=== PATIENT | male | born 1990 | race Caucasian/White ===

== ENCOUNTER 2018-04-13 16:58 | Emergency (ER) | payer BC, MEDICAID ==
[2018-04-13] MEDS ORDERED: Ketorolac 60 MG/2 ML SDV IM ONE (17:50)
--- NOTE | 2018-04-13 18:32 | EDM.PDOC ---
ED HPI GENERAL MEDICAL PROBLEM - General Chief Complaint: Back Pain or Injury Stated Complaint: LOW BACK PAIN, FELL OFF LATTER, 3RD STEP UP,WK AGO Time Seen by Provider: 04/13/18 17:34 Source of Information: Reports: Patient History Limitations: Reports: No Limitations - History of Present Illness INITIAL COMMENTS - FREE TEXT/NARRATIVE: Fell down the 3rd step of ladder about one week ago, landed and then fell back into steel pole. Pain with movement to lumbar and coccyx. Used ibuprofen periodically with no relief. No loss of bowel or bladder control; no numbness to groin, no radicular pain Duration: Week(s): Location: Reports: Back (lumbar and sacrum) Severity: Moderate Improves with: Reports: None Worsens with: Reports: Movement Lower Back Pain Score (Numeric/FACES): 11 - Related Data Allergies Allergy/AdvReac Type Severity Reaction Status Date / Time No Known Allergies Allergy Verified 04/13/18 17:37 Home Meds: Home Meds NK [No Known Home Meds] 04/13/18 [History] Past Medical History HEENT History: Reports: Otitis Media Musculoskeletal History: Reports: Fracture Other Musculoskeletal History: jaw fracture - Infectious Disease History Infectious Disease History: Reports: Chicken Pox, Mononucleosis Social & Family History - Tobacco Use Smoking Status *Q: Current Every Day Smoker Years of Tobacco use: 10 Packs/Tins Daily: 1 - Caffeine Use Caffeine Use: Reports: Coffee, Soda - Recreational Drug Use Recreational Drug Use: No ED ROS GENERAL - Review of Systems Review Of Systems: ROS reveals no pertinent complaints other than HPI. ED EXAM, GENERAL - Physical Exam Exam: See Below Exam Limited By: No Limitations General Appearance: Alert, WD/WN, No Apparent Distress Head: Atraumatic, Normocephalic Neck: Normal Inspection, Full Range of Motion Respiratory/Chest: No Respiratory Distress, Lungs Clear Cardiovascular: Regular Rate, Rhythm Back Exam: Normal Inspection, Decreased Range of Motion, Paraspinal Tenderness, Vertebral Tenderness Extremities: Normal Inspection, Normal Range of Motion, Non-Tender Neurological: Alert, Oriented, CN II-XII Intact, Normal Cognition, Normal Gait, Normal Reflexes, No Motor/Sensory Deficits Psychiatric: Normal Affect, Normal Mood Skin Exam: Warm, Dry, Intact Course - Vital Signs Last Recorded V/S: Last Vital Signs Temp 97.7 F 04/13/18 17:43 Pulse 85 04/13/18 17:43 Resp 20 04/13/18 17:43 BP 133/84 04/13/18 17:43 Pulse Ox 98 04/13/18 17:43 - Orders/Labs/Meds Orders: Active Orders 24 hr Category Date Time Status Lumbar Spine 2 or 3V [CR] Stat Exams 04/13/18 17:51 Taken Sacrum Coccyx Min 2V [CR] Stat Exams 04/13/18 17:51 Taken Meds: Medications Discontinued Medications Generic Name Dose Route Start Last Admin Trade Name Deepti PRN Reason Stop Dose Admin Ketorolac Tromethamine 60 mg 04/13/18 17:50 04/13/18 18:08 Toradol IM 04/13/18 17:51 60 mg ONETIME ONE Administration - Re-Assessments/Exams Free Text/Narrative Re-Assessment/Exam: 04/13/18 19:00xray of lumbar/sacrum per my review; I do no appreciate a fracture /any displacement. Pending radiology review. Departure - Departure Time of Disposition: 18:21 Disposition: Home, Self-Care 01 Condition: Good Clinical Impression: Low back strain - Discharge Information Instructions: Lumbosacral Strain, Back Pain, Adult, [id number] Referrals: PCP,None [Primary Care Provider] - Forms: ED Department Discharge Additional Instructions: Ice rest tylenol and ibuprofen for pain If you have breakthrough pain, try tramadol The less you do, the worse it will be. Do not just lay in bed. Try be up and moving but do not over do it. Follow up with your primary md in 2 weeks if pain is persistent; - Problem List & Annotations (1) Low back strain SNOMED Code(s): 622465251 Code(s): S39.012A - STRAIN OF MUSCLE, FASCIA AND TENDON OF LOWER BACK, INIT Status: Acute Priority: Medium Qualifiers: Encounter type: initial encounter Qualified Code(s): S39.012A - Strain of muscle, fascia and tendon of lower back, initial encounter - Problem List Review Problem List Initiated/Reviewed/Updated: Yes - My Orders Last 24 Hours: My Active Orders 04/13/18 17:51 Lumbar Spine 2 or 3V [CR] Stat Sacrum Coccyx Min 2V [CR] Stat - Assessment/Plan Last 24 Hours: My Active Orders 04/13/18 17:51 Lumbar Spine 2 or 3V [CR] Stat Sacrum Coccyx Min 2V [CR] Stat
--- NOTE | 2018-04-14 09:21 | CR ---
Lumbar Spine 2 or 3V CLINICAL HISTORY: Fall FINDINGS: The vertebral body heights are maintained. There is straightening of lumbar lordosis. The a lignment is maintained. There is a transitional lumbosacral segment IMPRESSION: Straightening of the lumbar lordosis may indicate spasm No fracture or subluxation Transitional lumbosacral segment
--- NOTE | 2018-04-14 09:22 | CR ---
Sacrum Coccyx Min 2V CLINICAL HISTORY: Pain, fall FINDINGS: There is a transitional lumbosacral segment. No fracture or subluxation is identified. Impression: No acute cardiopulmonary process
== END 2018-04-13 18:39 | disposition home or self-care (01) ==
LOC: JP.ED 16:58
DX: S39.012A Strain of muscle, fascia and tendon of lower back, initial encounter (principal); F17.210 Nicotine dependence, cigarettes, uncomplicated; W11.XXXA Fall on and from ladder, initial encounter
CPT/HCPCS: 72100; 72220; 96372; 99284; J1885

== ENCOUNTER 2020-01-22 21:54 | Emergency (ER) | payer BC ==
[2020-01-22] MEDS ORDERED: Cyclobenzaprine 10 MG Tab PO ONE (22:25)
[2020-01-22] MEDS ORDERED: Ketorolac 60 MG/2 ML SDV IM ONE (22:25)
--- NOTE | 2020-01-22 22:27 | EDM.PDOC ---
ED HPI GENERAL MEDICAL PROBLEM - General Chief Complaint: Back Pain or Injury Stated Complaint: BACK PAIN Time Seen by Provider: 01/22/20 22:21 Source of Information: Reports: Patient, RN Notes Reviewed History Limitations: Reports: No Limitations - History of Present Illness INITIAL COMMENTS - FREE TEXT/NARRATIVE: 29-year-old gentleman presents emergency department today complaint of low back pain, he recently had lumbar surgery for bulging disc at L5-S1 he was doing some work around his house today a little bit a lot of work yard work he has developed low back pain with spasms no loss of bowel or bladder no new numbness and tingling in the feet back pain Pain Score (Numeric/FACES): 9 - Related Data Allergies Allergy/AdvReac Type Severity Reaction Status Date / Time No Known Allergies Allergy Verified 01/22/20 22:12 Home Meds: Home Meds Acetaminophen [Mapap] 1,500 - 2,000 mg PO DAILY PRN 01/22/20 [History] Past Medical History HEENT History: Reports: Otitis Media Musculoskeletal History: Reports: Fracture Other Musculoskeletal History: jaw fracture - Infectious Disease History Infectious Disease History: Reports: Chicken Pox, Mononucleosis - Past Surgical History HEENT Surgical History: Reports: Adenoidectomy, Tonsillectomy Neurological Surgical History: Reports: Lumbar Spine Social & Family History - Caffeine Use Caffeine Use: Reports: Coffee, Soda, Tea - Alcohol Use Days Per Week of Alcohol Use: 2 Number of Drinks Per Day: 5 Total Drinks Per Week: 10 - Recreational Drug Use Recreational Drug Use: No ED ROS GENERAL - Review of Systems Review Of Systems: See Below Constitutional: Reports: No Symptoms Respiratory: Reports: No Symptoms Cardiovascular: Reports: No Symptoms GI/Abdominal: Reports: No Symptoms Musculoskeletal: Reports: Back Pain Neurological: Reports: Numbness (Not new) ED EXAM,LOWER BACK PAIN/INJURY - Physical Exam Exam: See Below Exam Limited By: No Limitations General Appearance: Alert, WD/WN, No Apparent Distress Respiratory/Chest: No Respiratory Distress Back Exam: Normal Inspection, Decreased Range of Motion, Muscle Spasm, Paraspinal Tenderness. No: CVA Tenderness (R), CVA Tenderness (L), Vertebral Tenderness Extremities: Normal Inspection, No Pedal Edema Course - Vital Signs Last Recorded V/S: Last Vital Signs Temp 98.4 F 01/22/20 22:17 Pulse 92 01/22/20 22:17 Resp 19 01/22/20 22:17 BP 126/79 01/22/20 22:17 Pulse Ox 95 01/22/20 22:17 - Orders/Labs/Meds Meds: Medications Discontinued Medications Generic Name Dose Route Start Last Admin Trade Name Deepti PRN Reason Stop Dose Admin Cyclobenzaprine HCl 10 mg 01/22/20 22:25 01/22/20 22:34 Flexeril PO 01/22/20 22:26 10 mg ONETIME ONE Administration Hydromorphone HCl 1 mg 01/22/20 23:05 01/22/20 23:13 Dilaudid IM 01/22/20 23:06 1 mg ONETIME ONE Administration Ketorolac Tromethamine 60 mg 01/22/20 22:25 01/22/20 22:34 Toradol IM 01/22/20 22:26 60 mg ONETIME ONE Administration Departure - Departure Time of Disposition: 23:41 Disposition: Home, Self-Care 01 Condition: Fair Clinical Impression: Low back strain Qualifiers: Encounter type: initial encounter Qualified Code(s): S39.012A - Strain of muscle, fascia and tendon of lower back, initial encounter - Discharge Information Instructions: Lumbar Sprain Referrals: Esau Kemp MD [Primary Care Provider] - Forms: ED Department Discharge Additional Instructions: Use Tylenol or Motrin for baseline pain control, use Percocet through breakthrough pain, please followup with your primary care provider in 3-5 days if not better, please call return to the emergency department with worsening of symptoms. Sepsis Event Note - Evaluation Sepsis Screening Result: No Definite Risk - Focused Exam Vital Signs: Vital Signs Temp Pulse Resp BP Pulse Ox 01/22/20 22:17 98.4 F 92 19 126/79 95 Date Exam was Performed: 01/22/20 Time Exam was Performed: 23:40 - Assessment/Plan Plan: Assessment Acuity = acute Site and laterality = low back pain Etiology = unknown Manifestations = none Location of injury = Home Lab values = none Plan Good improvement combination Toradol and hydromorphone phone as well as Flexeril prescription written for Percocet 5/325 1 tab p.o. 3 times daily PRN total #10 have him follow-up with his primary care in 3 to 5 days if not better This note was dictated using [employer] recognition software please call with any questions on syntax or grammar.
[2020-01-22] MEDS ORDERED: HYDROmorphone 1 MG/ML Syringe IM ONE (23:05)
== END 2020-01-22 23:48 | disposition home or self-care (01) ==
LOC: JP.ED 21:54
DX: S39.012A Strain of muscle, fascia and tendon of lower back, initial encounter (principal); X58.XXXA Exposure to other specified factors, initial encounter; Y99.0 Civilian activity done for income or pay
CPT/HCPCS: 96372; 99283; A9270; J1170; J1885